=== PATIENT | male | born 1945 | race Caucasian/White ===

== ENCOUNTER → 2016-10-11 | Day surgery (SDC) | payer OTHER ==
[~2016-10-11] VITALS: Ht 175.2 cm; Wt 80.3 kg
[~2016-10-11] MED LIST: CLOPIDOGREL75 MG PO; INVOKANA100 M1 PO; LANTUS SOL100 UNIT/1 SQ; METOPROLOL25 MG PO; NOVOLOG FL100 UNIT/1 SQ; ROSUVASTATIN CA20 MG PO; TAMSULOSIN HCL0.4 MG PO; VICTOZA 3-PAK6 MG/ML SC
--- NOTE | ~2016-10-11 | O ---
[place], [place] OPERATIVE NOTE NAME: DORA FERGUSON JR [facility] #: [id number] UNIT #: [id number] ROOM: DOCTOR: KEL ARIAS MD BIRTHDATE: [birth year] DOS: 10/11/2016 PREOPERATIVE DIAGNOSIS: Cataract, right eye. POSTOPERATIVE DIAGNOSIS: Cataract, right eye. OPERATION: Extracapsular cataract extraction by phacoemulsification with posterior chamber intraocular lens implantation, right eye. ANESTHESIA: Monitored standby. OPERATIVE FINDINGS AND PROCEDURE: 2% Xylocaine topical anesthetic gel was applied to the eye in the preop area. The patient was taken to the operating room and prepped and draped in the standard fashion for sterile intraocular surgery. A time out procedure was performed verifying correct patient, correct site and corrects lens with Marcus Arias M.D. The operating microscope was swung into position and the lid speculum was inserted. Using a Mary paracentesis blade, a paracentesis was made through clear cornea. Viscoelastic was used to fill the anterior chamber. Using a metal keratome a 2.4 mm self-sealing clear corneal cataract incision was made temporally at the limbus. Using a pre-bent 25 gauge cystotome needle, a standard continuous curvilinear capsulorrhexis was performed. The anterior capsule was removed with forceps. The lens nucleus was hydrodissected and phacoemulsified in the posterior chamber. Cortical material was removed with the irrigation aspiration hand piece and the posterior capsule was then polished with a curet under irrigation. The posterior chamber and capsular bag were filled with viscoelastic. A posterior chamber intraocular lens manufactured by: [employer], Model #[id number], and 19.0 diopters in strength were then inserted into the posterior chamber and within the capsular bag using the lens cartridge and injector system. Viscoelastic was removed using the irrigation aspiration handpiece. The anterior chamber was filled with balanced salt solution through the paracentesis. Both the paracentesis site and cataract incisions were hydrated with BSS and verified to be water-tight and self-sealing. Cefuroxime 1 mg/0.1 mL was injected into the anterior chamber through the paracentesis site. The incision checked to be water-tight using a Weck-Catherine sponge. The integrity of the cataract wound and ocular tension were checked. Lid speculum and drapes were removed. The patient was transferred from the operating room to the recovery room in satisfactory condition. [place], [place] OPERATIVE NOTE NAME: DORA FERGUSON JR UNIT #: [id number] ROOM: DOCTOR: KEL ARIAS MD BIRTHDATE: [birth year] KEL ARIAS MD CM:OPRECORD:OPERATIVE NOTE [id number] KEL ARIAS MD 10/11/16 1249 interface
[2016-10-11 07:40] VITALS: BP 112/69
[2016-10-11 08:55] VITALS: BP 138/75
[2016-10-11 09:10] VITALS: BP 143/76
[2016-10-11 09:25] VITALS: BP 146/79
== END | disposition home or self-care (01) ==
LOC: SDC 10-06 08:00
DX: E11.36 Type 2 diabetes mellitus with diabetic cataract (principal); I10 Essential (primary) hypertension; I25.2 Old myocardial infarction

== ENCOUNTER → 2016-11-15 | Day surgery (SDC) | payer OTHER ==
[~2016-11-15] VITALS: Ht 175.2 cm; Wt 80.3 kg
--- NOTE | ~2016-11-15 | O ---
[place], [place] OPERATIVE NOTE [id number] UNIT #: [id number] ROOM: DOCTOR: KEL ARIAS MD BIRTHDATE: [birth year] DOS: 11/15/2016 PREOPERATIVE DIAGNOSIS: Cataract, left eye. POSTOPERATIVE DIAGNOSIS: Cataract, left eye. OPERATION: Extracapsular cataract extraction by phacoemulsification with posterior chamber intraocular lens implantation, left eye. ANESTHESIA: Monitored standby. OPERATIVE FINDINGS AND PROCEDURE: 2% Xylocaine topical anesthetic gel was applied to the eye in the preop area. The patient was taken to the operating room and prepped and draped in the standard fashion for sterile intraocular surgery. A time out procedure was performed verifying correct patient, correct site and corrects lens with Marcus Arias M.D. The operating microscope was swung into position and the lid speculum was inserted. Using a Mary paracentesis blade, a paracentesis was made through clear cornea. Viscoelastic was used to fill the anterior chamber. Using a metal keratome a 2.4 mm self-sealing clear corneal cataract incision was made temporally at the limbus. Using a pre-bent 25 gauge cystotome needle, a standard continuous curvilinear capsulorrhexis was performed. The anterior capsule was removed with forceps. The lens nucleus was hydrodissected and phacoemulsified in the posterior chamber. Cortical material was removed with the irrigation aspiration hand piece and the posterior capsule was then polished with a curet under irrigation. The posterior chamber and capsular bag were filled with viscoelastic. A posterior chamber intraocular lens manufactured by: [employer], Model #[id number] and 18.5 diopters in strength were then inserted into the posterior chamber and within the capsular bag using the lens cartridge and injector system. Viscoelastic was removed using the irrigation aspiration handpiece. The anterior chamber was filled with balanced salt solution through the paracentesis. Both the paracentesis site and cataract incisions were hydrated with BSS and verified to be water-tight and self-sealing. Cefuroxime 1 mg/0.1 mL was injected into the anterior chamber through the paracentesis site. The incision checked to be water-tight using a Weck-Catherine sponge. The integrity of the cataract wound and ocular tension were checked. Lid speculum and drapes were removed. The patient was transferred from the operating room to the recovery room in satisfactory condition. [place], [place] OPERATIVE NOTE NAME: DORA FERGUSON JR UNIT #: [id number] ROOM: DOCTOR: KEL ARIAS MD BIRTHDATE: [birth year] KEL ARIAS MD CM:OPRECORD:OPERATIVE NOTE [id number] KLE ARIAS MD 11/15/16947 interface
[2016-11-15 07:00] VITALS: BP 114/44
[2016-11-15 08:44] VITALS: BP 111/77
[2016-11-15 08:56] VITALS: BP 110/80
[2016-11-15 09:14] VITALS: BP 117/69
== END | disposition home or self-care (01) ==
LOC: SDC 11-10 08:45
DX: E10.36 Type 1 diabetes mellitus with diabetic cataract (principal); I25.2 Old myocardial infarction; I25.10 Atherosclerotic heart disease of native coronary artery without angina pectoris; I10 Essential (primary) hypertension; Z90.49 Acquired absence of other specified parts of digestive tract; Z98.890 Other specified postprocedural states; Z79.4 Long term (current) use of insulin; M19.90 Unspecified osteoarthritis, unspecified site; Z79.01 Long term (current) use of anticoagulants; Z79.899 Other long term (current) drug therapy

== ENCOUNTER → 2022-01-05 | Day surgery (SDC) | payer OTHER ==
[~2022-01-05] VITALS: Ht 175.2 cm; Wt 79.4 kg
[~2022-01-05] MED LIST changes: +ASPIRIN ADULT L81 M1 PO; +JARDIANCE10 MG PO; +RANEXA500 M1 PO
[2022-01-05 07:20] VITALS: BP 136/61
[2022-01-05 07:43] VITALS: BP 106/58
[2022-01-05 08:00] VITALS: BP 106/58
[2022-01-05 08:15] VITALS: BP 124/50
== END | disposition home or self-care (01) ==
LOC: SDC 01-02 08:00
PROVIDERS: ATTEND Surgery
DX: Z12.11 Encounter for screening for malignant neoplasm of colon (principal); K57.30 Diverticulosis of large intestine without perforation or abscess without bleeding; I10 Essential (primary) hypertension; E11.9 Type 2 diabetes mellitus without complications; I25.2 Old myocardial infarction; I25.10 Atherosclerotic heart disease of native coronary artery without angina pectoris; Z87.891 Personal history of nicotine dependence; Z85.46 Personal history of malignant neoplasm of prostate; Z95.1 Presence of aortocoronary bypass graft; Z95.5 Presence of coronary angioplasty implant and graft; Z79.899 Other long term (current) drug therapy

== ENCOUNTER → 2022-05-02 | Outpatient (CLI) | payer OTHER | END | disposition home or self-care (01) | LOC: RESCLI 01:25 | PROVIDERS: ATTEND Internal Medicine | DX: E11.9 Type 2 diabetes mellitus without complications (principal); E78.5 Hyperlipidemia, unspecified; N40.0 Benign prostatic hyperplasia without lower urinary tract symptoms; I25.10 Atherosclerotic heart disease of native coronary artery without angina pectoris; E55.9 Vitamin D deficiency, unspecified; Z98.890 Other specified postprocedural states; Z88.1 Allergy status to other antibiotic agents; Z79.899 Other long term (current) drug therapy ==

== ENCOUNTER → 2023-05-07 | Outpatient (CLI) | payer MEDICARE | END | disposition home or self-care (01) | LOC: RESCLI 02:51 | PROVIDERS: ATTEND Internal Medicine | DX: E78.5 Hyperlipidemia, unspecified (principal); E11.9 Type 2 diabetes mellitus without complications; I25.10 Atherosclerotic heart disease of native coronary artery without angina pectoris; N40.0 Benign prostatic hyperplasia without lower urinary tract symptoms; E55.9 Vitamin D deficiency, unspecified; I10 Essential (primary) hypertension; Z79.4 Long term (current) use of insulin; Z79.899 Other long term (current) drug therapy; Z95.5 Presence of coronary angioplasty implant and graft; Z98.890 Other specified postprocedural states; Z83.3 Family history of diabetes mellitus; Z82.49 Family history of ischemic heart disease and other diseases of the circulatory system; Z88.8 Allergy status to other drugs, medicaments and biological substances ==

== ENCOUNTER → 2024-06-17 | Outpatient (CLI) | payer OTHER ==
[2024-06-17 11:16] LABS: MEAN CELL VOLUME 95.1 fl (80.0-94.0); MEAN CORPUSCULAR HGB 29.8 pg (27.0-31.0); MEAN CORPUSCULAR HGB CONC 31.3 g/dl (33.0-37.0); MEAN PLATELET VOLUME 11.2 fl (9.6-12.3); PLATELET COUNT AUTOMATED 129 10*3/uL (130-400); RED CELL DISTRI WIDTH 15.9 % (0-14.5)
[2024-06-17 11:42] LABS: MANUAL DIFF REFLEX YES
[2024-06-17 11:48] LABS: PLATELET SUFFICIENCY LOW (NORMAL); TOTAL CELLS COUNTED 100 #CELLS
[2024-06-17 11:49] LABS: BURR CELLS FEW
[2024-06-17 11:52] LABS: OVALOCYTES FEW
[2024-06-17 12:11] LABS: ALKALINE PHOSPHATASE 85 U/L (46-116); BUN 24 mg/dl (9-23); CHLORIDE 105 mmol/L (98-107); CHOLESTEROL 121 mg/dL (<200); LDL CHOLESTEROL 57 mg/dL (9-159); POTASSIUM 4.5 mmol/L (3.4-5.1); SGPT/ALT 45 U/L (5-49); TOTAL PROTEIN 6.3 gm/dL (6.0-8.0); TRIGLYCERIDES 74 mg/dl (<150)
== END | disposition home or self-care (01) ==
LOC: RESCLI 01:55 → LAB 02:29 → RESCLI 02:29
PROVIDERS: Internal Medicine; ATTEND Student in an Organized Health Care Education/Training Program
DX: I25.10 Atherosclerotic heart disease of native coronary artery without angina pectoris (principal); I10 Essential (primary) hypertension; E78.5 Hyperlipidemia, unspecified; E11.9 Type 2 diabetes mellitus without complications; N40.0 Benign prostatic hyperplasia without lower urinary tract symptoms; E55.9 Vitamin D deficiency, unspecified; I49.3 Ventricular premature depolarization; Z13.9 Encounter for screening, unspecified; Z79.899 Other long term (current) drug therapy; Z79.82 Long term (current) use of aspirin; Z98.890 Other specified postprocedural states; Z88.8 Allergy status to other drugs, medicaments and biological substances

== ENCOUNTER 2024-08-28 22:57 | Observation (INO) | payer OTHER ==
[~2024-08-28] VITALS: Ht 172.7 cm; Wt 76.4 kg
[2024-08-28 23:22] VITALS: BP 94/35
[2024-08-28] MEDS ORDERED: VIBRAMYCIN100 MG PO (23:49)
[2024-08-28] MEDS ORDERED: SODIUM CHLORIDE 0.9% 1,000 ML IV ONE (23:50)
[2024-08-28] MEDS ORDERED: HUMALOG100 UNIT/1 SC (23:50)
[2024-08-29] VITALS (12 sets, daily range): BP systolic 55–128; BP diastolic 25–82
[2024-08-29 00:01] LABS: MEAN CELL VOLUME 93.8 fl (80.0-94.0); MEAN CORPUSCULAR HGB 29.8 pg (27.0-31.0); MEAN PLATELET VOLUME 10.7 fl (9.6-12.3); NUCLEATED RED BLOOD CELL 0.0 % (0.0-0.0); NUCLEATED RED BLOOD CELL 0.0 10*3/uL (0.0-0.0); PLATELET COUNT AUTOMATED 148 10*3/uL (130-400); RED CELL DISTRI WIDTH 16.2 % (0-14.5)
[2024-08-29 00:08] LABS: MANUAL DIFF REFLEX YES
[2024-08-29 00:19] LABS: BUN 40.0 mg/dl (9-23)
[2024-08-29 00:23] LABS: PLATELET SUFFICIENCY LOW (NORMAL)
[2024-08-29] MEDS ORDERED: ZETIA10 MG PO (00:28)
[2024-08-29] MEDS ORDERED: SODIUM CHLORIDE 0.9% 1,000 ML IV ONE ×2 (02:00→03:55)
[2024-08-29 03:05] LABS: BILIRUBIN Negative (Negative); BLOOD Negative (Negative); CLARITY Clear (Clear); COLOR Yellow (Yellow); KETONE Negative (Negative); LEUKO ESTERASE Negative (Negative); NITRITE Negative (Negative); PH 5.0 (4.5-8.0); SPECIFIC GRAVITY 1.020 (1.001-1.030); UROBILINOGEN 0.2 E.U./dl (0.0-1.0)
[2024-08-29 03:36] LABS: RBC 0-2 rbc/hpf (0-2); WBC 0-2 wbc/hpf (0-5)
[2024-08-29] MEDS ORDERED: DEXTROSE 50% 25 GM/50 ML VIAL IV PRN (03:50)
[2024-08-29] MEDS ORDERED: Albuterol Sulf/Ipratropium 3 ML VIAL NEB PRN (06:45)
[2024-08-29] MEDS ORDERED: INSULIN LISPRO 1 UNIT/0.01 ML SQ SCH (07:30)
[2024-08-29] MEDS ORDERED: ASPIRIN, CHEWABLE 81 MG TAB PO SCH (10:00)
[2024-08-29] MEDS ORDERED: EMPAGLIFLOZIN 10 MG TABLET PO SCH (10:00)
[2024-08-29] MEDS ORDERED: Ranolazine 500 MG TAB ER PO SCH (10:00)
[2024-08-29] MEDS ORDERED: HEPARIN SODIUM 5,000 UNIT/ML VIAL SC SCH (10:00)
[2024-08-29] MEDS ORDERED: GUAIFENESIN 600 MG TAB ER PO SCH (10:00)
[2024-08-29] MEDS ORDERED: EZETIMIBE 10 MG TAB PO SCH (10:00)
[2024-08-29 10:36] LABS: BASO # 0.0 10*3/uL (0.0-0.1); BASO % 0.1 % (0.0-1.0); EOS # 0.1 10*3/uL (0.0-0.4); EOS % 0.8 % (1.0-4.0); MEAN CELL VOLUME 95.5 fl (80.0-94.0); MEAN CORPUSCULAR HGB 29.8 pg (27.0-31.0); MEAN PLATELET VOLUME 10.6 fl (9.6-12.3); MONO # 1.1 10*3/uL (0.1-1.0); MONO % 9.8 % (3.0-9.0); NEUT # 9.0 10*3/uL (2.3-7.9); NEUT % 79.2 % (47.0-73.0); NUCLEATED RED BLOOD CELL 0.0 % (0.0-0.0); NUCLEATED RED BLOOD CELL 0.0 10*3/uL (0.0-0.0); PLATELET COUNT AUTOMATED 144 10*3/uL (130-400); RED CELL DISTRI WIDTH 16.4 % (0-14.5)
[2024-08-29 11:19] LABS: BUN 30 mg/dl (9-23)
[2024-08-29] MEDS ORDERED: TEMAZEPAM 15 MG CAP PO PRN (20:55)
[2024-08-29] MEDS ORDERED: Acetaminophen/Hydrocodone 5 MG/325 MG TABLET PO PRN (20:55)
[2024-08-29] MEDS ORDERED: BISACODYL 10 MG SUPP R PRN (20:55)
[2024-08-29] MEDS ORDERED: ACETAMINOPHEN 325 MG TAB PO PRN (20:55)
[2024-08-29] MEDS ORDERED: Ondansetron Hydrochloride 4 MG/2 ML VIAL IV PRN (20:55)
[2024-08-29] MEDS ORDERED: ACETAMINOPHEN 650 MG SUPP R PRN (20:55)
[2024-08-29] MEDS ORDERED: ATORVASTATIN CALCIUM 40 MG TABLET PO SCH (22:00)
[2024-08-30] VITALS (8 sets, daily range): BP systolic 105–138; BP diastolic 42–55
[2024-08-30 06:09] LABS: BASO # 0.0 10*3/uL (0.0-0.1); BASO % 0.2 % (0.0-1.0); EOS # 0.3 10*3/uL (0.0-0.4); EOS % 3.5 % (1.0-4.0); MEAN CELL VOLUME 95.1 fl (80.0-94.0); MEAN CORPUSCULAR HGB 29.7 pg (27.0-31.0); MEAN PLATELET VOLUME 11.1 fl (9.6-12.3); MONO # 1.0 10*3/uL (0.1-1.0); MONO % 11.3 % (3.0-9.0); NEUT # 6.4 10*3/uL (2.3-7.9); NEUT % 69.1 % (47.0-73.0); NUCLEATED RED BLOOD CELL 0.0 % (0.0-0.0); NUCLEATED RED BLOOD CELL 0.0 10*3/uL (0.0-0.0); PLATELET COUNT AUTOMATED 145 10*3/uL (130-400); RED CELL DISTRI WIDTH 16.5 % (0-14.5)
[2024-08-30 06:10] LABS: BUN 27 mg/dl (9-23)
[2024-08-30] MEDS ORDERED: SODIUM CHLORIDE 0.9% 1,000 ML IV ONE ×2 (09:50→10:07)
[2024-08-30] MEDS ORDERED: PROPOFOL 200 MG/20 ML VIAL IV ONE (12:04)
[2024-08-30] MEDS ORDERED: Lidocaine Hydrochloride 5 ML VIAL IV ONE (12:04)
[2024-08-31] VITALS: BP 136/57
[2024-08-31 06:24] LABS: BASO # 0.0 10*3/uL (0.0-0.1); BASO % 0.3 % (0.0-1.0); EOS # 0.4 10*3/uL (0.0-0.4); EOS % 3.1 % (1.0-4.0); MEAN CELL VOLUME 94.4 fl (80.0-94.0); MEAN CORPUSCULAR HGB 29.8 pg (27.0-31.0); MEAN PLATELET VOLUME 10.9 fl (9.6-12.3); MONO # 1.1 10*3/uL (0.1-1.0); MONO % 9.6 % (3.0-9.0); NEUT # 7.7 10*3/uL (2.3-7.9); NEUT % 68.4 % (47.0-73.0); NUCLEATED RED BLOOD CELL 0.0 % (0.0-0.0); NUCLEATED RED BLOOD CELL 0.0 10*3/uL (0.0-0.0); PLATELET COUNT AUTOMATED 186 10*3/uL (130-400); RED CELL DISTRI WIDTH 16.4 % (0-14.5)
[2024-08-31 06:41] LABS: BUN 24 mg/dl (9-23)
[2024-08-31 08:00] VITALS: BP 114/46
[2024-08-31 12:00] VITALS: BP 112/55
[2024-08-31 16:00] VITALS: BP 118/41
[2024-08-31 20:00] VITALS: BP 119/56
[2024-09-01] VITALS: BP 135/41
[2024-09-01 07:24] LABS: BASO # 0.0 10*3/uL (0.0-0.1); BASO % 0.3 % (0.0-1.0); EOS # 0.4 10*3/uL (0.0-0.4); EOS % 4.7 % (1.0-4.0); MEAN CELL VOLUME 94.1 fl (80.0-94.0); MEAN CORPUSCULAR HGB 29.7 pg (27.0-31.0); MEAN PLATELET VOLUME 10.5 fl (9.6-12.3); MONO # 0.9 10*3/uL (0.1-1.0); MONO % 10.3 % (3.0-9.0); NEUT # 6.0 10*3/uL (2.3-7.9); NEUT % 66.2 % (47.0-73.0); NUCLEATED RED BLOOD CELL 0.0 % (0.0-0.0); NUCLEATED RED BLOOD CELL 0.0 10*3/uL (0.0-0.0); PLATELET COUNT AUTOMATED 193 10*3/uL (130-400); RED CELL DISTRI WIDTH 16.4 % (0-14.5)
[2024-09-01 07:48] LABS: BUN 25 mg/dl (9-23)
[2024-09-01 08:00] VITALS: BP 134/52
[2024-09-01] MEDS ORDERED: OMNICEF300 MG PO (11:49)
[2024-09-01] MEDS ORDERED: MUCUS RELIEF E600 MG PO (11:49)
[2024-09-01] MEDS ORDERED: ZITHROMAX250 MG PO (11:49)
[2024-09-01 12:00] VITALS: BP 130/57
== END 2024-09-01 13:35 | disposition home or self-care (01) ==
LOC: ED 22:57 → EDHOLD 08-29 03:29 → 4E 08-29 03:29 → EDHOLD 08-29 03:29 → 4E 08-29 08:25
PROVIDERS: Emergency Medicine; Internal Medicine; Student in an Organized Health Care Education/Training Program; ADMIT Student in an Organized Health Care Education/Training Program; ATTEND Student in an Organized Health Care Education/Training Program
DX: G90.9 Disorder of the autonomic nervous system, unspecified (principal); K92.2 Gastrointestinal hemorrhage, unspecified; I95.9 Hypotension, unspecified; J18.9 Pneumonia, unspecified organism; N17.0 Acute kidney failure with tubular necrosis; R19.5 Other fecal abnormalities; D72.829 Elevated white blood cell count, unspecified; I25.810 Atherosclerosis of coronary artery bypass graft(s) without angina pectoris; E78.5 Hyperlipidemia, unspecified; E11.65 Type 2 diabetes mellitus with hyperglycemia; I49.3 Ventricular premature depolarization; I50.20 Unspecified systolic (congestive) heart failure; Z20.822 Contact with and (suspected) exposure to COVID-19; Z79.899 Other long term (current) drug therapy; Z79.4 Long term (current) use of insulin